=== PATIENT | female | born 1955 | race Caucasian/White ===

== ENCOUNTER 2019-03-23 14:39 | Inpatient (IN) | payer BC, OTHER ==
[~2019-03-23] VITALS: Ht 157.5 cm; Wt 87.4 kg
[2019-03-23 15:00] VITALS: BP 142/103
[2019-03-23] MEDS ORDERED: METFORMIN HCL500 MG PO (15:42)
[2019-03-23] MEDS ORDERED: COZAAR 25 MG TA25 M1 PO (15:44)
[2019-03-23] MEDS ORDERED: GLUCOTROL5 MG PO (15:45)
[2019-03-23] MEDS ORDERED: ASPIR 8181 MG PO (15:46)
[2019-03-23] MEDS ORDERED: LIPITOR10 MG PO (15:47)
[2019-03-23 17:36] LABS: HEMATOCRIT 43.6 % (37.0-47.0); HEMOGLOBIN 14.2 gm/dL (12.0-15.0); MCH 26.4 pg (26.0-34.0); MCHC 32.5 g/dL (28.0-37.0); MCV 81.3 fL (80.0-100.0); RBC 5.37 mil/uL (4.20-5.00); RDW 14.6 % (10.5-14.5); WBC 16.8 thou/uL (4.0-11.0)
[2019-03-23 17:59] LABS: ALBUMIN 3.1 g/dL (3.4-5.0); CALCIUM 8.8 mg/dL (8.5-10.1); CREATININE 0.6 mg/dL (0.6-1.0); POTASSIUM 3.2 mmol/L (3.5-5.1); TOTAL BILIRUBIN 1.2 mg/dL (<0.1-1.0); TOTAL PROTEIN 6.1 g/dL (6.4-8.2)
--- NOTE | 2019-03-23 18:38 | NUR ---
PATIENT ARRIVED FROM DR URRUTIA OFFICE, ALERT AND ORIENTED X4. AFIB WITH RVR, CARDIZEM PUSH GIVEN AND GTT AT 10MG/HR. ADMISION COMPLETED AND CARE PLAN INTIAITED.
[2019-03-23 20:00] VITALS: BP 100/58; BP 107/59
[2019-03-23 21:15] VITALS: BP 89/58
[2019-03-23 22:30] VITALS: BP 95/63
[2019-03-24 00:15] VITALS: BP 107/79
--- NOTE | 2019-03-24 03:22 | NUR ---
ASSUMED PT CARE AT 1900. PT A/OX4, VITAL SIGNS STABLE, PT IN AFIB RVR, HR RANGING BETWEEN 160'S- 120'S. PT ON CARDIZEM DRIP GOING AT 20MG/HR. NO COMPLAINTS OF PAIN/CHEST PAIN. PHYSICIAN VISITED WITH PT, HR STILL ELEVATED, ADDITION MEDS ORDERED, LOPRESSOR GIVEN. AT ABOUT 2230, PT BLOOD PRESSURE WAS IN 80'S. PHYSICIAN CONTACTED, ORDERS RECIEVED. FREQUENT/HRLY BLOOD PRESSURE CHECKS UNTIL STABLE. MEDS GIVEN RECOMMENDED/SCHEDULED. HR RANGING BETWEEN 115-80. CLOSELY MONITORING HR. GOAL TO KEEP HR<100. PT OTHERWISE RESTED WELL THROUGH THE NIGHT. CALLS APPROPRIATELY BEFORE GETTING OUT OF BED. PROGESSING TOWARD PLAN OF CARE. WILL CONTINUE TO MONITOR.
[2019-03-24 04:00] VITALS: BP 105/72
[2019-03-24 07:34] VITALS: BP 109/68
--- NOTE | 2019-03-24 09:30 | 2DMMODE ---
[facility] [address] [place] [address] 2 D/M-MODE ECHOCARDIOGRAM Name: AICHA SOLER Room #: 219-P [facility] IN M.R.#: [id number] ������������� Admission: 03/23/19 ������������� Attend Phys: Lebron Diego, Discharge: ��� ������������� ��� Date of : 57 Date of Service: 03/24/19 0930 �� Report #: [id number] �������� ��������������������������������������������[id number] THIS REPORT FOR: //name// APPROVED REPORT Study performed: 03/24/2019 08:13:28 EXAM: Comprehensive 2D, Doppler, and color-flow Echocardiogram Patient Location: Bedside Room #: 219 Status: routine BSA: 1.88 HR: 103 bpm BP: 109/68 mmHg Rhythm: Atrial Fibrillation Other Information Study Quality: Good Indications Atrial Fibrillation 2D Dimensions RVDd: 39.39 mm IVSd: 10.96 (7-11mm) LVOT Diam: 18.83 (18-24mm) LVDd: 50.79 mm PWd: 9.91 (7-11mm) Ascending Ao: 33.64 (22-36mm) LVDs: 42.14 (25-40mm) Aortic Root: 30.70 mm Volumes Left Atrial Volume (Systole) Single Plane 4CH: 72.86 mL Single Plane 2CH: 73.42 mL LA ESV Index: 42.00 mL/m2 Aortic Valve AoV Peak Darian.: 1.55 m/s AO Peak Gr.: 9.88 mmHg LVOT Max P.50 mmHg LVOT Max V: 0.78 m/s LUCIANO Vmax: 1.40 cm2 Mitral Valve MV Decel. Time: 126.60 ms MV E Max Darian.: 1.10 m/s [facility] [address] [place] [address] 2 D/M-MODE ECHOCARDIOGRAM Name: AICHA SOLER Room #: 219-P [facility] IN ..#: [id number] ������������� Admission: 03/23/19 ������������� Attend Phys: Lebron Diego, Discharge: ��� ������������� ��� Date of : 57 Date of Service: 03/24/19 0930 �� Report #: [id number] �������� ��������������������������������������������[id number] Pulmonary Valve PV Peak Darian.: 0.57 m/s PV Peak Gr.: 1.39 mmHg Tricuspid Valve TR Peak Darian.: 2.14 m/s RAP Estimate: 10.00 mmHg TR Peak Gr.: 18.61 mmHg PA Pressure: 29.00 mmHg Left Ventricle The left ventricle is normal size. There is normal left ventricular wall thickness. Left ventricular systolic function is mild to moderately decreased. LVEF is35- 40%. This study is not technically sufficient to allow evaluation of the LV diastolic function due to atrial fibrillation. Right Ventricle Right ventricle is moderately dilated. Right ventricle is mildly hypokinetic. Atria Left atrium is moderately dilated. Right atrium is borderline dilated. Aortic Valve The aortic valve is normal in structure. No aortic regurgitation is present. There is no aortic valvular stenosis. Mitral Valve The mitral valve is normal in structure. Moderate mitral regurgitation. Tricuspid Valve The tricuspid valve is normal in structure. Moderate tricuspid regurgitation. Estimated PAP is 30mmHg. Pulmonic Valve The pulmonary valve is normal in structure. Mild pulmonic regurgitation. Great Vessels The aortic root is normal in size. The ascending aorta is normal in size. IVC is dilated and collapses <50% with inspiration. Pericardium Small pericardial effusion noted. [facility] [address] [place] [address] 2 D/M-MODE ECHOCARDIOGRAM Name: AICHA SOLER Room #: 219-P [facility] IN M.R.#: [id number] ������������� Admission: 03/23/19 ������������� Attend Phys: Lebron Diego, Discharge: ��� ������������� ��� Date of : 57 Date of Service: 03/24/19 0930 �� Report #: [id number] �������� ��������������������������������������������[id number] <Conclusion> The left ventricle is normal size. Left ventricular systolic function is mild to moderately decreased. LVEF is35- 40%. This study is not technically sufficient to allow evaluation of the LV diastolic function due to atrial fibrillation. Right ventricle is moderately dilated. Right ventricle is mildly hypokinetic. Left atrium is moderately dilated. Right atrium is borderline dilated. Moderate mitral regurgitation. The aortic valve is normal in structure. Moderate tricuspid regurgitation. Estimated PAP is 30mmHg. The aortic root is normal in size. Small pericardial effusion noted. ��������������������������������������������� <ELECTRONICALLY SIGNED> ���������������������������������������� By: Lebron Diego MD, FACC ��������������������������������������������� 03/24/19929 9 9 Lebron Diego MD, FACC /INF
[2019-03-24 10:46] VITALS: BP 110/66
[2019-03-24 15:28] VITALS: BP 114/56
--- NOTE | 2019-03-24 17:58 | NUR ---
ASSUMED CARE AT SHIFT CHANGE, ALERT AND ORIENTED. HR REMAINS HIGH AT 100-165/MIN, AND CARDIAC MEDS GIEVN ORDERED AND PATIENT REMAINS ON CARDIZEM GTT AT 20MG/HR. AFEBRILE AND BP WNL. DENIES ANY CP OR DISCOMFORT AND WILL CONTINUE WITH POC.
[2019-03-24 19:31] VITALS: BP 140/58
--- NOTE | 2019-03-25 03:06 | NUR ---
ASSUMED PT CARE AT 1900. PT A/OX4, VITAL SIGNS STABLE, ASSESSMENT CHARTED. NO COMPLAINTS OF PAIN. HR MAINTAINED BETWEEN 110-80'S. PT HR GOES UP TO THE 130'S WITH ACTIVITY. PT RESTED WELL THROUGH THE NIGHT. CARDIZEM GOING AT 20MG/HR. PROGRESSING TOWARD PLAN OF CARE. WILL CONTINUE TO MONITOR.
[2019-03-25 04:54] VITALS: BP 119/84
[2019-03-25 08:21] VITALS: BP 124/64
--- NOTE | 2019-03-25 09:30 | EKG ---
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 : 1955 Requested By: Gabi Garcia Order Number: [id number] MD: Nicholas Hawk Measurements Intervals [place] Rate: 103 P: SC: QRS: 64 QRSD: 105 T: 157 QT: 399 QTc: 523 Interpretive Statements Atrial fibrillation PVC Nonspecific ST segment–T-wave abnormalities No previous ECG available for comparison Electronically Signed On 03-25-2019 9:30:13 CDT by Nicholas Hawk [email or web address] ��������������������������������������������� <ELECTRONICALLY SIGNED> ���������������������������������������� By: Nicholas Hawk MD ��������������������������������������������� 03/25/19 0930 0948 0948 Nicholas Hawk MD /SHARLA
[2019-03-25 10:04] LABS: CALCIUM 8.9 mg/dL (8.5-10.1); CREATININE 0.7 mg/dL (0.6-1.0); POTASSIUM 3.7 mmol/L (3.5-5.1)
[2019-03-25 11:55] VITALS: BP 137/51
[2019-03-25 15:24] VITALS: BP 116/72
--- NOTE | 2019-03-25 19:23 | NUR ---
ASSUMED CARE AT SHIFT CHANGE, ALERT AND ORIENTED X4 AND DENIES ANY DISCOMFORT. ASSESSMENT DOCUMENTED. HR 120-75/MIN REMAINS ON CADIZEM GTT AT 5MG/HR, AND MEDICATED PER ORDERS. PATIENT HAS A SMALL WOUND CAUSED BY THE ECG ELECTRODES, PICTURE TAKEN AND FILED IN THE CHART. PROGRESSING TOWARDS THE GOALS AND WILL CONTIUE WITH POC
[2019-03-25 19:26] VITALS: BP 118/71
--- NOTE | 2019-03-26 04:05 | NUR ---
ASSUMED PT CARE AT 1900. PT A/OX4, NO COMPLAINTS OF PAIN. VITAL SIGNS STABLE, ASSESSMENT CHARTED. CARDIZEM DRIP GOING AT 5MG/HR, RATE ADEQAUTELY CONTROLLED. HR IN THE 80'S AND 90'S. PT RESTED WELL THROUGH THE NIGHT. REFUSED HER 2100 GLIPIZIDE. STATED SHE TAKES IT ONLY ONE TIME A DAY AT HOME. WILL CONTINUE TO CLOSELY MONITOR. WILL CONTINUE TO MONITOR.
[2019-03-26 04:22] VITALS: BP 136/60
[2019-03-26] MEDS ORDERED: DEMADEX20 MG PO (07:59)
[2019-03-26] MEDS ORDERED: COZAAR 25 MG TA25 M1 PO (07:59)
[2019-03-26] MEDS ORDERED: METOPROLOL SUCC50 MG PO (07:59)
[2019-03-26] MEDS ORDERED: XARELTO20 MG PO (07:59)
[2019-03-26] MEDS ORDERED: DIGOXIN250 MCG PO (07:59)
[2019-03-26] MEDS ORDERED: CARDIZEM CD240 MG PO (07:59)
--- NOTE | 2019-03-26 08:09 | NUR ---
PT CARE ASSUMED, ASSESSMENT CHARTED, VSS, ALERT AND ORIENTED, C/O OF L CHEST PAIN, GAVE HYDROCODONE, STATES NO FURTHER NEEDS, WILL CONTINUE TO MONITOR
[2019-03-26 08:15] VITALS: BP 125/69
[2019-03-26 09:59] VITALS: BP 125/69
--- NOTE | 2019-03-26 10:52 | NUR ---
PATIENT CARE ASSUMED, ASSESSMENT CHARTED, VSS, ALERT AND ORIENTED. PATIENT TO BE DISCHARGED, CARDIZEM DRIP DC'D AND SALINE LOCK DC'D. MORNING MEDS GIVEN, DISCHARGE INSTRUCTIONS GIVEN, PATIENT STATED UNDERSTANDING. TAKEN OUT OF FACILITY BY WHEELCHAIR ACCOMPANIED BY SPOUSE
--- NOTE | 2019-03-26 16:14 | EKG ---
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 : 1955 Requested By: Gabi Garcia Order Number: [id number] MD: Nicholas Hawk Measurements Intervals [place] Rate: 104 P: SC: QRS: 6 QRSD: 97 T: 166 QT: 365 QTc: 481 Interpretive Statements Atrial fibrillation Repol abnrm suggests ischemia, lateral leads Compared to ECG 03/24/2019 09:48:35 Possible ischemia now present Ventricular premature complex(es) no longer present Electronically Signed On 03-26-2019 16:13:58 CDT by Nicholas Hawk [email or web address] ��������������������������������������������� <ELECTRONICALLY SIGNED> ���������������������������������������� By: Nicholas Hawk MD ��������������������������������������������� 03/26/19 1613 0755 0755 Nicholas Hawk MD /EPI
== END 2019-03-26 10:55 | disposition home or self-care (01) | DRG 308 ==
LOC: 2N 14:39 → ENTRNSPT 03-26 10:38 → EDTRNSPTSTS 03-26 10:40 → 2N 03-26 10:55
PROVIDERS: Nurse Practitioner Adult Health; ADMIT Internal Medicine Cardiovascular Disease
DX: I48.91 Unspecified atrial fibrillation (principal); I50.23 Acute on chronic systolic (congestive) heart failure; I11.0 Hypertensive heart disease with heart failure; E78.5 Hyperlipidemia, unspecified; E11.9 Type 2 diabetes mellitus without complications; I42.9 Cardiomyopathy, unspecified; I08.1 Rheumatic disorders of both mitral and tricuspid valves; Z79.82 Long term (current) use of aspirin; Z79.84 Long term (current) use of oral hypoglycemic drugs; Z79.899 Other long term (current) drug therapy; Z88.0 Allergy status to penicillin; Z88.5 Allergy status to narcotic agent
CPT/HCPCS: 10081

== ENCOUNTER → 2019-04-29 | Outpatient (CLI) | payer BC, OTHER ==
[~2019-04-29] VITALS: Ht 157.5 cm; Wt 78.0 kg
[~2019-04-29] MED LIST: AMIODARONE HCL400 MG PO; ASPIR 8181 MG PO; CARDIZEM CD240 MG PO; COZAAR 25 MG TA25 M1 PO; DEMADEX20 MG PO; DIGOXIN250 MCG PO; GLUCOTROL5 MG PO; LIPITOR10 MG PO; METFORMIN HCL500 MG PO; METOPROLOL SUCC50 MG PO; TOPROL XL100 MG PO; TORSEMIDE20 MG PO; TRI-BUFFERED A325 M1 PO; XARELTO20 MG PO
[2019-04-29 07:15] VITALS: BP 127/74
--- NOTE | 2019-04-29 09:57 | TEE ---
[facility] [employer] [employer] [place] [address] TRANSESOPHAGEAL ECHOCARDIOGRAM Name: AICHA SOLER Room #: REG CL [facility]#: [id number] ������������� Admission: 04/29/19 ������������� Attend Phys: Lebron Diego, Discharge: ��� ������������� ��� Date of : 57 Date of Service: 04/29/19 0957 �� Report #: [id number] �������� ��������������������������������������������[id number] THIS REPORT FOR: //name// APPROVED REPORT Study performed: 04/29/2019 07:53:08 EXAM: Transesophageal Echocardiogram with Doppler; Cardioversion Patient 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 Type of Sedation : Conscious Sedation Sedation was administered by Giovana Greenberg RN. Sedation was achieved intravenously with: Versed (2.5 mg) Fentanyl (125 mcg) Transesophageal probe was inserted and advanced into esophagus without difficulty by Christopher Denson MD. The THAI was performed without complications. Synchronized Cardioversion attempted: Unsuccessful Synchronized Cardioversion acheived with 50, 150, 200, 200 Joules after 4 attempt(s). Rhythm following Synchronized Cardioversion: Atrial fibrillation Throughout the procedure, the blood pressure, pulse oximetry, cardiac rhythm, and rate were monitored. The patient tolerated the procedure without adverse effects. Recovery from conscious sedation was uneventful and vital signs were stable. Attempted 4 times Synchronized Cardioversion, 50 Joules, 150 Joules, 200 Joules, 200 Joules. Patient remained in Atrial Fibrillation. [facility] [address] [address] TRANSESOPHAGEAL ECHOCARDIOGRAM Name: AICHA SOLER [id number] ������������� Admission: 04/29/19 ������������� Attend Phys: Lebron Diego, Discharge: ��� ������������� ��� Date of : 57 Date of Service: 04/29/19 0957 �� Report #: [id number] �������� ��������������������������������������������[id number] Left Ventricle The left ventricle is normal size. There is normal left ventricular wall thickness. The left ventricular systolic function is normal. The left ventricular ejection fraction is within the normal range. LVEF is 50%. Right Ventricle The right ventricle is normal size. The right ventricular systolic function is normal. Atria Left atrium is dilated. No thrombus is visualized in the left atrium or appendage. Prominent pectinate muscles Atrial septal defect is seen with color flow doppler measuring (diameter .6 cm) Right atrium is dilated. Aortic Valve The aortic valve is normal in structure, trileaflet. No aortic regurgitation is present. There is no aortic valvular stenosis. Mitral Valve The mitral valve is normal in structure. Mild mitral regurgitation. No evidence of mitral valve stenosis. Tricuspid Valve The tricuspid valve is normal in structure. Mild tricuspid regurgitation. Pulmonic Valve The pulmonary valve is normal in structure. There is no pulmonic valvular regurgitation. Great Vessels The aortic root is normal in size. Moderate aortic atherosclerosis involving the distal aortic arch IVC is normal in size and collapses >50% with inspiration. Pericardium There is no pericardial effusion. Critical Notification Critical Value: Yes Physician Notified Date: 04/29/2019 [facility] [address] [place] [address] TRANSESOPHAGEAL ECHOCARDIOGRAM Name: AICHA SOLER Room #: [facility]#: [id number] ������������� Admission: 04/29/19 ������������� Attend Phys: Lebron Diego, Discharge: ��� ������������� ��� Date of : 57 Date of Service: 04/29/19 0957 �� Report #: [id number] �������� ��������������������������������������������[id number] <Conclusion> The left ventricular systolic function is normal. LVEF is 50%. Both atria are dilated. No thrombus is visualized in the left atrium or appendage. Prominent pectinate muscles Atrial septal defect is seen with color flow doppler measuring (diameter .6 cm) The aortic valve is normal in structure, trileaflet. No aortic regurgitation or stenosis The mitral valve is normal in structure. Mild mitral regurgitation. Moderate aortic atherosclerosis involving the distal aortic arch There is no pericardial effusion. Failure to intiate sinus rhythm following 4 biphasic synchronous shocks ��������������������������������������������� <ELECTRONICALLY SIGNED> ���������������������������������������� By: Christopher Denson MD, [facility] ��������������������������������������������� 04/29/1956 0957 09 Christopher Denson MD, FACC /INF
--- NOTE | 2019-04-29 10:19 | NUR ---
DR URRUTIA NOTIFIED THAT PT'S HEART RATE STAYING AROUND 137. PT ASYMPTOMATIC. SO GAVE METOPROLOL 5MG IV AND CARIDZEM 240 MG PO GIVEN AT 1015. PT FULLY AWAKE AND ALERT AND DRINKING FLUIDS WITHOUT DIFFICULTY. NO COUGHING. ALSO EATING CRACKERS
--- NOTE | 2019-04-29 12:01 | NUR ---
PT CONVERTED TO NSR AT 1140. RHYTHM STRIP RAN AND 12 LEAD EKG DONE. YANNI RN NOTIFIED. PT WAITING TO SEE DR GORDON
--- NOTE | 2019-04-30 07:30 | EKG ---
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 : 1955 Requested By: Lebron Diego Order Number: [id number] MD: Christopher Denson Measurements Intervals [place] Rate: 61 P: 68 ID: [id number] QRS: 15 QRSD: 101 T: 141 QT: 431 QTc: 434 Interpretive Statements Sinus rhythm Nonspecific ST and T wave abnormality Compared to ECG 03/26/2019 07:55:31 Atrial fibrillation no longer present Electronically Signed On 04-30-2019 7:30:17 CDT by Christopher Denson [email or web address] ��������������������������������������������� <ELECTRONICALLY SIGNED> ���������������������������������������� By: Christopher Denson MD, [facility] ��������������������������������������������� 04/30/19 0730 1152 1152 Christopher Denson MD, [facility] /EPI
== END | disposition home or self-care (01) ==
LOC: CATH 06:47
DX: I48.91 Unspecified atrial fibrillation (principal); I70.0 Atherosclerosis of aorta; I08.1 Rheumatic disorders of both mitral and tricuspid valves; I10 Essential (primary) hypertension; E07.9 Disorder of thyroid, unspecified; E11.9 Type 2 diabetes mellitus without complications; F41.9 Anxiety disorder, unspecified; F17.210 Nicotine dependence, cigarettes, uncomplicated; Z79.01 Long term (current) use of anticoagulants; Z88.0 Allergy status to penicillin; Z88.8 Allergy status to other drugs, medicaments and biological substances; Z79.899 Other long term (current) drug therapy; Z79.84 Long term (current) use of oral hypoglycemic drugs; Z79.82 Long term (current) use of aspirin; Z90.49 Acquired absence of other specified parts of digestive tract; Z98.890 Other specified postprocedural states

== ENCOUNTER 2019-05-03 09:01 | Inpatient (IN) | payer BC, OTHER ==
[~2019-05-03] VITALS: Ht 157.5 cm; Wt 76.9 kg
--- NOTE | ~2019-05-03 | P ---
[facility] [place] [address] PROCEDURE REPORT Name: AICHA SOLER Room #: 214-P ADM IN M.R.#: [id number] Admission: 05/03/19 ������������������ Attend Phys: Jamil Hyde MD Discharge: ������������������ Date of : 57 Report #: [id number] THIS REPORT FOR: //name// CC: Keon Hyde PACEMAKER IMPLANTATION: PREOPERATIVE DIAGNOSES: 1. Paroxysmal atrial fibrillation. 2. Sick sinus syndrome. 3. Tachycardia-bradycardia syndrome. 4. Syncope. 5. Cardiac arrest. HISTORY: The patient is a 63-year-old female originally diagnosed with paroxysmal atrial fibrillation who has had evidence of AFib with rapid ventricular response and conversion pauses that are 5-10 seconds in duration with associated presyncope and syncope. She is here for dual chamber pacemaker implantation. ANESTHESIA: The patient underwent MAC anesthesia with no anesthesia related complications. DESCRIPTION OF PROCEDURE: The patient underwent informed consent, we discussed the details of the procedure including the risks, which include but not limited to bleeding, infection, vascular damage, cardiac perforation and pneumothorax. She understood these risks and is willing to proceed. The patient was brought to the EP laboratory in a fasting and sedated state and prepped and draped in a sterile fashion. She received IV antibiotics prior to initiation of the procedure and underwent a venogram showing patency of left axillary vein. I then injected lidocaine below the level of left clavicle. Incision was made, pocket was created over the prepectoral fascia and access was obtained twice to left axillary vein using the extrathoracic approach. Sheaths were positioned using the modified Seldinger technique. Leads were positioned in the right ventricular apex and right atrial appendage both with adequate pacing and sensing thresholds. While we were performing the device implantation, the patient did go into atrial fibrillation with rapid ventricular response; all sites of conversion pauses. In order to check the atrial threshold, we had to perform cardioversion. We did give her a bolus of amiodarone in the EP lab as well to maintain sinus rhythm as the initial cardioversions were not successful. Next, leads were sutured to the prepectoral fascia. The device was connected to the leads. The pocket was irrigated with vancomycin and then closed in 2 layers using 2-0 for the deep layer, 3-0 for the mid layer and surgical glue was placed to the outer skin layer. The patient awoke neurologically and hemodynamically intact. No complications and no [address] [address] PROCEDURE REPORT Name: AICHA SOLER Room #: 214-P [facility] IN ..#: [id number] Admission: 05/03/19 ������������������ Attend Phys: Jamil Hyde MD Discharge: ������������������ Date of : 57 Report #: [id number] significant bleeding. The implanted pacemaker was a [employer], model #PP9332, serial #[id number]. The atrial lead was a [employer], model #2088TC, 52 cm, serial #[id number]. The RV lead was a [employer] model #2088TC, 58 cm, serial #[id number]. The atrial lead demonstrated a threshold of less than 1 volt at 0.5 milliseconds, P-wave of 3.6 millivolts and pacing impedance 600 ohms. The RV lead demonstrated a R-wave of greater than 12 millivolts, pacing threshold 0.75 volts at 0.4 milliseconds and a pacing impedance of 540 ohms. The device was programmed to the DDDR 60-130 mode. CONCLUSIONS: 1. Successful dual-chamber pacemaker implantation. 2. Satisfactory atrial and ventricular pacing and sensing thresholds. ��������������������������������������������� ���������������������������������������� By: ��������������������������������������������� 0751 0910 Demetrius Arzola MD /nt
[~2019-05-03 09:01] MED LIST changes: -TORSEMIDE20 MG PO; -TRI-BUFFERED A325 M1 PO
[2019-05-03 09:02] VITALS: BP 139/99
[2019-05-03 09:43] LABS: ABSOLUTE NEUTROPHILS 5.7 thou/uL (1.4-8.2); BASOPHILS 0.5 % (0.0-2.0); EOSINOPHILS 1.6 % (0.0-3.0); HEMATOCRIT 46.7 % (37.0-47.0); HEMOGLOBIN 15.4 gm/dL (12.0-15.0); LYMPHOCYTES 30.9 % (24.0-44.0); MCH 26.3 pg (26.0-34.0); MCV 79.7 fL (80.0-100.0); MONOCYTES 10.4 % (1.0-8.0); PLATELET COUNT 194 thou/uL (150-400); POLYS 56.6 % (36.0-66.0); RBC 5.86 mil/uL (4.20-5.00); RDW 15.3 % (10.5-14.5); WBC 10.1 thou/uL (4.0-11.0)
[2019-05-03 09:48] LABS: ANION GAP 13 mmol/L (7-16); BUN 13 mg/dL (7-18); CALCIUM 8.9 mg/dL (8.5-10.1); CHLORIDE 103 mmol/L (98-107); CO2 26 mmol/L (21-32); CREATININE 0.7 mg/dL (0.6-1.0); GLUCOSE 135 mg/dL (74-106); POTASSIUM 3.6 mmol/L (3.5-5.1); SODIUM 142 mmol/L (136-145)
[2019-05-03 09:57] LABS: MAGNESIUM 1.1 mg/dL (1.8-2.4); TROPONIN-I <0.06 ng/mL (<0.06)
[2019-05-03 10:38] VITALS: BP 157/74
[2019-05-03 11:05] VITALS: BP 115/82
[2019-05-03 11:33] LABS: URINE BILIRUBIN NEGATIVE (Negative); URINE BLOOD NEGATIVE (Negative); URINE CLARITY CLEAR; URINE COLOR YELLOW; URINE GLUCOSE-RANDOM* NEGATIVE (Negative); URINE KETONES NEGATIVE (Negative); URINE LEUKOCYTES-REFLEX NEGATIVE (Negative); URINE NITRITE-REFLEX NEGATIVE (Negative); URINE PROTEIN (DIPSTICK) NEGATIVE (Negative); URINE SPECIFIC GRAVITY <= 1.005 (1.005-1.035); URINE UROBILINOGEN 0.2 E.U./dl (0.2-1.0)
[2019-05-03 12:37] VITALS: BP 100/55
[2019-05-03 15:37] VITALS: BP 100/80
--- NOTE | 2019-05-03 18:10 | NUR ---
ASSUMED CARE AT 1100, ADMISSION DONE, MEDS RECONCILED. ON TELE, SINUS BRADYCARDIA. NO ASYSTOLE WAS SEEN ON TELE. DENIES ANY PAIN, NAUSEA, VOMITING. UP WITH STANDBY ASSIST, USING THE BATHROOM. HAS NOT REPORTED ANY DIZZINESS. SCHEDULED FOR PACEMAKER PLACEMENT TOMORROW, NPO FROM MIDNIGHT, COSNENT SIGNED. WILL CONTINUE TO ASSESS AND ASSIST WITH ADLs NEEDED.
[2019-05-03 19:58] VITALS: BP 109/50
[2019-05-04 04:24] VITALS: BP 124/50
--- NOTE | 2019-05-04 06:38 | NUR ---
PATIENTS CARES WERE ASSUMED AT SHIFT CHANGE. PATIENT WAS ASSESSED AND MEDS WERE PASSED, PATIENT WAS SHOWERED X2 TO CLEAN AND MAKE READY FOR HER PACEMAKER PLACEMENT. LINENS WERE REFRESHED TO. HOURLY ROUNDING WAS DONE. THE BED IS IN A LOW AND LOCKED POSITION.
[2019-05-04 07:40] VITALS: BP 119/55
--- NOTE | 2019-05-04 08:15 | EKG ---
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: TYRELL : 1955 Requested By: Delaney Cross Order Number: [id number] MD: Demetrius Arzola Measurements Intervals [place] Rate: 125 P: 256 [place]: 89 QRS: 1 QRSD: 83 T: 222 QT: 284 QTc: 410 Interpretive Statements Atrial flutter Compared to ECG 04/29/2019 11:52:07 Early repolarization now present Electronically Signed On 05-04-2019 8:15:45 CDT by Demetrius Arzola [email or web address] ��������������������������������������������� <ELECTRONICALLY SIGNED> ���������������������������������������� By: Demetrius Arzola MD ��������������������������������������������� 05/04/19814 5 5 Demetrius Arzola MD /SHARLA
--- NOTE | 2019-05-04 11:05 | NUR ---
Assess for unintentional wt loss. Pt admit wiht dizziness and fall, and currently npo for pacemaker placement today. Pt not feeling up to speaking at time of visit but did state her appetite is fine, and she had wt loss nearly 20 lb because she required diuretic. Voiced no needs and again did not want to speak further to this financial writer. Low nutrition risk
--- NOTE | 2019-05-04 12:38 | NUR ---
PT ADMITTED RELATED TO DIZZINESS AND FALL. CM REVIEWED CHART AND SPOKE WITH CARE TEAM. CM MET WITH PT AT BEDSIDE THIS DAY. PT IS A&O X4. CM ROLE INTRODUCED. PT INDICATED SHE LIVES IN A HOUSE WITH HER SPOUSE WITH 3 STEPS TO ENTER AND NONE INSIDE. 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 PT INDICATED NO DME BUT THAT SHE HAD DONE OP PT IN THE PAST. PT INDICATED SHE PLANS TO RETURN HOME ONCE MEDICALLY STABLE. PT IS TO HAVE A PACEMAKER PUT IN TODAY. CM TO FOLLOW INDICATED WITH DC PLANNING. CM TO FOLLOW REGARDING DC NEEDS.
[2019-05-04 14:39] VITALS: BP 116/47
[2019-05-04 18:49] VITALS: BP 118/53
--- NOTE | 2019-05-04 19:53 | NUR ---
ASSESSMENT CHARTED, VSS, ALERT AND ORIENTED, PATIENT NPO, CARDIAC PACEMAKER PLACED IN UPPER RIGHT CHEST. WELL APPROXIMATED. NO COMPLAINTS OF PAIN
[2019-05-04 20:32] VITALS: BP 127/63
--- NOTE | 2019-05-05 04:28 | NUR ---
PATIENTS CARE WAS ASSUMED AT SHIFT CHANGE.PATIENT WAS ASSESSED AND MEDS WERE PASSED. ORDERS WERE BEHIND WHEN THE SHIFT STARTED HOWEVER ALL ORDERS WERE CARRIED OUT. AMIODERON GTT STARTED LATE, HOWEVER ITIS TO RUN SIX HOURS THEN STOP. PO MEDS ALSO LATE BUT BACK ON TRACK. HOURLY ROUNDS WERE DONE. THE BED IS IN A LOW AND LOCKED POSITION.
[2019-05-05 05:05] VITALS: BP 139/63
[2019-05-05 07:42] VITALS: BP 143/65
[2019-05-05] MEDS ORDERED: XARELTO20 MG PO (08:47)
[2019-05-05 09:42] VITALS: BP 143/65
[2019-05-05] MEDS ORDERED: TORSEMIDE20 MG PO (10:36)
[2019-05-05] MEDS ORDERED: TRI-BUFFERED A325 M1 PO (10:45)
[2019-05-05] MEDS ORDERED: AMIODARONE HCL400 MG PO (10:56)
[2019-05-05 10:58] VITALS: BP 143/65
--- NOTE | 2019-05-05 11:04 | NUR ---
ASSUMED CARE AT SHIFT CHANGE, ALERT AND ORIENTED X4. DENIES CP OR DISCOMFORT AT THIS TIME. ASSESMENT CHARTED. DISCHARGE AND MEDICATION INSTRUCTIONS GIVEN. PATIENT DISCHATGED HOME.
== END 2019-05-05 11:04 | disposition home or self-care (01) | DRG 243 ==
LOC: ER 09:01 → 2N 10:27 → EROBS 10:27 → 2N 11:36
PROVIDERS: Emergency Medicine; ADMIT Internal Medicine
PROC: 0JH606Z Insertion of Pacemaker, Dual Chamber into Chest Subcutaneous Tissue and Fascia, Open Approach (ICD-10-PCS; principal; 2019-05-04)
PROC: 02H63JZ Insertion of Pacemaker Lead into Right Atrium, Percutaneous Approach (ICD-10-PCS; 2019-05-04)
PROC: 02HK3JZ Insertion of Pacemaker Lead into Right Ventricle, Percutaneous Approach (ICD-10-PCS; 2019-05-04)
DX: I49.5 Sick sinus syndrome (principal); I48.92 Unspecified atrial flutter; I50.32 Chronic diastolic (congestive) heart failure; Q21.1 Atrial septal defect; E11.9 Type 2 diabetes mellitus without complications; E03.9 Hypothyroidism, unspecified; F17.210 Nicotine dependence, cigarettes, uncomplicated; I48.0 Paroxysmal atrial fibrillation; E78.5 Hyperlipidemia, unspecified; I11.0 Hypertensive heart disease with heart failure; E66.9 Obesity, unspecified; I34.0 Nonrheumatic mitral (valve) insufficiency; J44.9 Chronic obstructive pulmonary disease, unspecified; F41.9 Anxiety disorder, unspecified; I42.9 Cardiomyopathy, unspecified; E05.90 Thyrotoxicosis, unspecified without thyrotoxic crisis or storm; Z88.0 Allergy status to penicillin; Z88.8 Allergy status to other drugs, medicaments and biological substances; Z79.899 Other long term (current) drug therapy; Z79.82 Long term (current) use of aspirin; Z79.84 Long term (current) use of oral hypoglycemic drugs; Z90.49 Acquired absence of other specified parts of digestive tract; Z82.49 Family history of ischemic heart disease and other diseases of the circulatory system; Z83.3 Family history of diabetes mellitus; Z80.9 Family history of malignant neoplasm, unspecified; Z79.01 Long term (current) use of anticoagulants; Z68.31 Body mass index [BMI] 31.0-31.9, adult
CPT/HCPCS: 10081; 10194; 62110; 62900; 70005

== ENCOUNTER → 2019-06-29 | Outpatient (CLI) | payer BC, OTHER ==
[~2019-06-29] MED LIST changes: +TORSEMIDE20 MG PO; +TRI-BUFFERED A325 M1 PO
[2019-06-29 07:50] LABS: HEMATOCRIT 41.6 % (37.0-47.0); HEMOGLOBIN 14.1 gm/dL (12.0-15.0); MCH 28.4 pg (26.0-34.0); MCHC 33.8 g/dL (28.0-37.0); MCV 84.1 fL (80.0-100.0); RBC 4.94 mil/uL (4.20-5.00); RDW 16.9 % (10.5-14.5); WBC 7.9 thou/uL (4.0-11.0)
[2019-06-29 08:18] LABS: ALBUMIN 3.6 g/dL (3.4-5.0); CALCIUM 8.7 mg/dL (8.5-10.1); CREATININE 0.7 mg/dL (0.6-1.0); POTASSIUM 4.1 mmol/L (3.5-5.1); TOTAL BILIRUBIN 0.3 mg/dL (<0.1-1.0); TOTAL PROTEIN 6.8 g/dL (6.4-8.2)
== END ==
LOC: CAT 07:06
PROVIDERS: Internal Medicine Cardiovascular Disease
DX: I48.0 Paroxysmal atrial fibrillation (principal); I25.10 Atherosclerotic heart disease of native coronary artery without angina pectoris; M47.814 Spondylosis without myelopathy or radiculopathy, thoracic region; Z95.0 Presence of cardiac pacemaker; Z88.0 Allergy status to penicillin; Z88.5 Allergy status to narcotic agent

== ENCOUNTER 2019-07-03 09:21 | Outpatient (CLI) | payer BC, OTHER ==
[~2019-07-03] VITALS: Ht 157.5 cm; Wt 82.6 kg
--- NOTE | ~2019-07-03 | P ---
[facility] [address] PROCEDURE REPORT Name: AICHA SOLER Room #: 213-P [facility] LandaSamirOsmanySamir#: [id number] Admission: 07/03/19 ������������������ Attend Phys: Demetrius Arzola MD Discharge: ������������������ Date of : 57 Report #: [id number] THIS REPORT FOR: //name// CC: Keon Arzola DATE OF SERVICE: 07/03/2019 PREOPERATIVE DIAGNOSES: 1. Atrial fibrillation. 2. Typical atrial flutter. PROCEDURES PERFORMED: 1. AFib ablation, CPT code 26821. 2. 3D mapping, CPT code 30704. 3. Intracardiac echo, CPT code 63832. 4. Second pathway ablation, CPT code 30479. 5. Preprocedure pacemaker reprogramming, CPT code 39405. 6. Postprocedure pacemaker reprogramming, CPT code 74489. HISTORY: The patient is a 63-year-old recently diagnosed with paroxysmal atrial fibrillation as well as sick sinus syndrome with documented syncopal episodes, status post recent dual chamber pacemaker implantation. Despite antiarrhythmic drug therapy, she has continued to have episodes of atrial fibrillation. She is here for atrial fib and atrial flutter ablation. ANESTHESIA: The patient underwent general anesthesia with no anesthesia related complications. DESCRIPTION OF PROCEDURE: The patient underwent informed consent. We discussed the details of the procedure including the risks, which included but not limited to bleeding, infection, vascular damage, cardiac perforation, stroke and CT. She understood these risks and is willing to proceed. The patient was brought to the EP laboratory in a fasting and unsedated state and prepped and draped in a sterile fashion. I obtained access of the right femoral vein x 3, placing an 8, 9 and 7-Ukrainian short sheath using the modified Seldinger technique. Prior to the ablation, her pacemaker was programmed to the DDD 70 mode. Next, via the femoral sheaths, I placed a decapolar catheter easily in the coronary sinus and an ICE catheter into the right atrium. Using the ICE catheter, intracardiac ultrasound images were obtained of the right and left atrium. There was evidence of two left and two right pulmonary veins. She had a standard interatrial septum and no unusual anatomic variance. Using intracardiac ultrasound, a detailed 3D geometry was created and this was merged with the cardiac CT scan. Next, the patient was systemically heparinized and a transseptal was performed using an SL1 sheath and a Eldon needle. Of note, [address] [address] PROCEDURE REPORT Name: AICHA SOLER Room #: 213-P [facility] Winsome#: [id number] Admission: 07/03/19 ������������������ Attend Phys: Demetrius Arzola MD Discharge: ������������������ Date of : 57 Report #: [id number] under THAI, there was evidence of a PFO, but I could not localize this using THAI ultrasound. On my first pass of the interatrial septum, I came on with the Eldon needle and the needle barely crossed into the left atrium. I tried advancing my dilator into the left atrium and this was unsuccessful. Therefore, a second attempt at transseptal was performed and again, I came on with the Eldon needle and again, the needle barely crossed into the left atrium. Advancing the dilator again, I was not able to advance into the left atrium. It appeared that she had a very fibrosed interatrial septum. Therefore, using my wire, I hunted for one of these holes that I created and I was able to advance my guidewire into the left superior pulmonary vein. I attempted to advance the sheath across the septum and this was unsuccessful. This appeared to be very fibrosed. Therefore, I removed the dilator and kept the wire in the left superior pulmonary vein and I placed a [employer] Powerflex Pro 6 mm x 4 cm balloon into the interatrial septum and I performed dilatation of the interatrial septum. After performing this, I could easily advance the SL1 sheath into the left atrium and therefore, I exchanged the SL1 sheath for the cryo sheath and I was able to place this into the left superior pulmonary vein. Pre-ablation, the patient was in sinus rhythm, sinus cycle length of 855 milliseconds with a paced atrial rhythm. AR interval was 145, QRS duration was 85 milliseconds, QT interval was 500 milliseconds. Next, I started by attempting to isolate the left superior pulmonary vein. This vein had an unusual takeoff as it curved anteriorly. Therefore, getting a good seal on this vessel was quite challenging. I performed several freezes in this vein. My first freeze was of 50 seconds duration. Second freeze was only of 60 seconds duration and came off because our attempts were greater than 30 degrees. I then performed a third freeze of 180 seconds duration with temperatures only reaching -31 degrees. I performed a fourth freeze, came off after 70 seconds due to poor temps and I performed a fifth freeze of 180 seconds duration and I only attained a temperature of -31 degrees. Therefore, I decided to move to the left inferior pulmonary vein and I performed a 4-minute freeze followed by a 300-second freeze. During the second freeze, the vein isolated within 160 seconds. I then checked the left superior pulmonary vein to see if this was isolated and unfortunately, it was not. Therefore, I performed a 3-minute freeze followed by another 3-minute freeze that did not result in isolation. I then performed another freeze and this time, it appeared I got my best occlusion based on venography. This time, I got a temperature of -48 degrees. This was by far our best freeze and the vein isolated within 57 seconds. Therefore, I continued the freeze for 5 minutes. I turned my attention to the right superior pulmonary vein and I performed a 100-second freeze followed by an 85-second freeze and came off early due to poor temps. I then was able to place the balloon more anteriorly and inferiorly and got a better seal with temps of -46 degrees. This vein isolated within 33 seconds. I performed a freeze of 3 minutes duration and came off early due to some weakening of the phrenic nerve. We monitored the phrenic for about 5 minutes and it returned to full strength, so this was not a major issue. I then turned my attention to the right inferior pulmonary vein and I performed a single freeze of 3 minutes duration and the vein isolated [facility] [address] [place] [address] PROCEDURE REPORT Name: AICHA SOLER Room #: 213-P [facility]#: [id number] Admission: 07/03/19 ������������������ Attend Phys: Demetrius Arzola MD Discharge: ������������������ Date of : 57 Report #: [id number] within about 40 seconds. Therefore, I checked all the veins and these appeared to be isolated. I therefore removed my cryoballoon from the cryo sheath and I created a 3D voltage map of the left atrium using a Lasso catheter and this clearly showed that we had created a wide circumferential ablation of the left and right-sided veins. As such, all catheters and sheaths were pulled to the right side. Ablation of atrial flutter. Given the patient's history of prior atrial flutter, flutter ablation was performed. Prior to ablation, the transisthmus conduction time was 60 seconds. I performed ablation with an 8 mm ablation catheter via ramp sheath at 70 greenberg and 60 degrees. I created a continuous drag lesion and once I reached the IVC, came off ablation. I then checked and there was evidence of bidirectional block with a transisthmus conduction time of 135 milliseconds. I went back on my line and looked for any potentials and there were nice double potentials throughout and there were some small signals along the posterior aspect and I did some additional ablation here and at this point, the procedure was concluded. Using intracardiac ultrasound, I verified that there was no pericardial effusion. The patient received systemic protamine and once the ACT was within acceptable range, all catheters and sheaths were pulled and hemostasis was obtained and a [id number] suture was placed at the groin site. Her pacemaker was interrogated, tested and found to be functioning normally. It was programmed back to its original settings at DDDR 70-130. CONCLUSIONS: 1. Successful AFib ablation with isolation of the 4 pulmonary veins. 2. Successful atrial flutter ablation with evidence of bidirectional block. 3. Successful pacemaker reprogramming. ��������������������������������������������� ���������������������������������������� By: ��������������������������������������������� [id number] /nt
[2019-07-03 09:57] VITALS: BP 156/81
[2019-07-03 10:06] LABS: ABSOLUTE NEUTROPHILS 4.1 thou/uL (1.4-8.2); BASOPHILS 1.2 % (0.0-2.0); EOSINOPHILS 1.6 % (0.0-3.0); HEMOGLOBIN 14.5 gm/dL (12.0-15.0); LYMPHOCYTES 36.1 % (24.0-44.0); MCH 29.1 pg (26.0-34.0); MCHC 34.5 g/dL (28.0-37.0); MCV 84.4 fL (80.0-100.0); MONOCYTES 10.7 % (1.0-8.0); PLATELET COUNT 242 thou/uL (150-400); POLYS 50.4 % (36.0-66.0); RBC 4.98 mil/uL (4.20-5.00); WBC 8.2 thou/uL (4.0-11.0)
[2019-07-03 10:19] LABS: APTT 25.8 Seconds (24.5-32.8); PROTIME 10.9 Seconds (9.3-11.4)
[2019-07-03 10:59] LABS: CALCIUM 8.8 mg/dL (8.5-10.1); CREATININE 0.6 mg/dL (0.6-1.0); POTASSIUM 3.6 mmol/L (3.5-5.1)
[2019-07-03 11:05] LABS: ALBUMIN 3.7 g/dL (3.4-5.0); TOTAL BILIRUBIN 0.4 mg/dL (<0.1-1.0)
[2019-07-03 16:10] VITALS: BP 129/73
--- NOTE | 2019-07-03 16:14 | NUR ---
REC PT FROM [employer] LAW CLERK, A&0X4, GROIN SITE ARTURO AND A STITCH, NO DRAINAGE NOR HEMATOMA, NOR BRUIT. ACHS, NO IVF AT THIS TIME. PT LETHARGIC. TWO IV SITES, SPOUSE HERE WITH PT. EDUCATED PT ON RESTRICTIONS AND D/T LETHARGIC STATE LET HER KNOW I'D REPEAT THEM. SHOWED BOTH HOW TO USE CALL LIGHT, STARTED VS AND POST PROCEDURE FLOW SHEET. WILL HAVE FAMILY SIGN PAPERS. WILL CONTINUE TO MONITOR. PT TURNED DOWN HAVING ANYTHING TO DRINK AT THIS TIME.
[2019-07-04 00:33] VITALS: BP 134/74
--- NOTE | 2019-07-04 04:53 | NUR ---
RECEIVED PT'S CARE AT 1939; PT. ON BED; AXO4; NO C/O PAIN; REMAINED BED REST UNTIL 2114; [facility]STAND[facility]; EDUCATED ABOUT FALL PREVENTION; [facility] UND[facility]STANDING; ST. "DO NOT BRING ME INSULIN"; "I DO NOT DO THAT"; ASKED IF WANTS BS CHECKED; REFUSED; AROUND 2099 BY NURSE AID REPORT PT. UPSET; C/O BACK PAIN; PRN PAIN MEDICATION NOT DUE; AT 2110; BY NURSE REPORT, GIL, PT. C/O WITH PRIMARY CARE COORDINATOR ABOUT NOT BEING HELPED TO STAND UP; PER REPORT PT. UPSET; IRRITABLE; RAISING VOICE; AT 2135 STICK INSERTER IN ROOM; PT. C/O BACK PAIN; ST. "I CALLED 40 MIN AGO & NOT BODY HAS HELPED ME"; EDUCATED ABOUT STICK INSERTER WAS WITH A CRITICAL PT; NO ANSWER BACK; BLANCA D/C PER ORDER; PT. HELPED OUT OF BED; NO C/O PAIN; NO HEMATOMA; PULSES 2/2; EDUCATED ABOUT CALLIN IF PAIN OVER GROIN AREA; ST. UNDERSTANDING; PT. APOLOGY FOR BEING SO "GRUMPY"; STICK INSERTER ACCEPT APOLOGIES; EDUCATED ABOUT ASSESSMENT Q4H; ST. UNDERSTANDING; R. GROIN SIDE DRY; INTACT; NO HEMATOMA DURING ASSESSMENT; MONITORING; ASSESSMENT CHARGED; FOLLOWING POC; WILL PASS ON REPORT.
[2019-07-04 06:11] VITALS: BP 141/73
[2019-07-04 08:00] VITALS: BP 141/75
[2019-07-04] MEDS ORDERED: AMIODARONE HCL400 MG PO (09:55)
[2019-07-04 10:54] VITALS: BP 141/75
--- NOTE | 2019-07-04 11:27 | NUR ---
REC CARE OF PT AT SHIFT CHANGE, SHE'S A&0X4, AMB STEADY, NO DRAINAGE NOR HEMATOMA AT R GROIN SITE, PT HAS TWO IVS, BOTH REMOVED FOR D/C, TELE REMOVED. PT IN MUCH BETTER SPIRITS THIS A.M. REFUSING BG STICKS, GOOD APPETITE, SPOUSE AT BEDSIDE, MANAGER INTEGRATION MARIA GONSALES REMOVED STITCH, PT TOLERATED WELL. SHE D/C TO HOME VIA W/C, SPOUSE AND ACCOMPANIED BY STAFF.
== END 2019-07-04 11:19 | disposition home or self-care (01) ==
LOC: CATH 09:21 → 2N 16:21 → CATH 07-04 11:19
PROVIDERS: Internal Medicine Cardiovascular Disease
DX: I48.91 Unspecified atrial fibrillation (principal); I48.4 Atypical atrial flutter; I10 Essential (primary) hypertension; E11.9 Type 2 diabetes mellitus without complications; E03.9 Hypothyroidism, unspecified; F17.210 Nicotine dependence, cigarettes, uncomplicated; Z90.49 Acquired absence of other specified parts of digestive tract; Z98.890 Other specified postprocedural states; Z79.899 Other long term (current) drug therapy; Z79.01 Long term (current) use of anticoagulants; Z88.0 Allergy status to penicillin; Z88.6 Allergy status to analgesic agent
CPT/HCPCS: 10081; 62110; 62900; 65020; 65040; 70005

== ENCOUNTER 2019-07-11 13:42 | Emergency (ER) | payer BC, OTHER ==
[~2019-07-11] VITALS: Ht 157.5 cm; Wt 78.5 kg
[2019-07-11 14:16] LABS: ABSOLUTE NEUTROPHILS 5.6 thou/uL (1.4-8.2); EOSINOPHILS 1.4 % (0.0-3.0); HEMATOCRIT 39.8 % (37.0-47.0); HEMOGLOBIN 13.6 gm/dL (12.0-15.0); LYMPHOCYTES 29.8 % (24.0-44.0); MCH 29.6 pg (26.0-34.0); MCHC 34.2 g/dL (28.0-37.0); MCV 86.6 fL (80.0-100.0); MONOCYTES 10.4 % (1.0-8.0); PLATELET COUNT 195 thou/uL (150-400); POLYS 57.4 % (36.0-66.0); RBC 4.59 mil/uL (4.20-5.00); RDW 15.8 % (10.5-14.5); WBC 9.9 thou/uL (4.0-11.0)
[2019-07-11 14:18] LABS: URINE BILIRUBIN NEGATIVE (Negative); URINE BLOOD TRACE (Negative); URINE CLARITY CLEAR; URINE COLOR YELLOW; URINE GLUCOSE-RANDOM* NEGATIVE (Negative); URINE KETONES NEGATIVE (Negative); URINE LEUKOCYTES NEGATIVE (Negative); URINE NITRITE NEGATIVE (Negative); URINE PROTEIN (DIPSTICK) TRACE (Negative); URINE SPECIFIC GRAVITY >= 1.030 (1.005-1.035); URINE UROBILINOGEN 0.2 E.U./dl (0.2-1.0)
[2019-07-11 14:29] LABS: ANION GAP 10 mmol/L (7-16); APTT 27.8 Seconds (24.5-32.8); BUN 17 mg/dL (7-18); CALCIUM 9.4 mg/dL (8.5-10.1); CHLORIDE 107 mmol/L (98-107); CO2 26 mmol/L (21-32); CREATININE 0.8 mg/dL (0.6-1.0); GLUCOSE 124 mg/dL (74-106); INR 1.1; POTASSIUM 3.8 mmol/L (3.5-5.1); PROTIME 11.3 Seconds (9.3-11.4); SODIUM 143 mmol/L (136-145)
[2019-07-11 14:30] LABS: AMP/METHAMP Negative (Negative); BARBITURATES Negative (Negative); BENZODIAZEPINES Negative (Negative); COCAINE Negative (Negative); METHADONE Negative (Negative); OPIATES Negative (Negative); PCP Negative (Negative)
[2019-07-11 14:35] LABS: ALBUMIN 3.7 g/dL (3.4-5.0); SALICYLATE 3.9 mg/dL (2.8-20.0); SGOT 12 U/L (15-37); SGPT 26 U/L (30-65); TOTAL BILIRUBIN 0.3 mg/dL (<0.1-1.0); TOTAL PROTEIN 7.1 g/dL (6.4-8.2)
[2019-07-11 15:15] VITALS: BP 120/62
[2019-07-11] MEDS ORDERED: NORCO 5-325 TA1 EAC1 PO (15:29)
== END 2019-07-11 15:45 | disposition home or self-care (01) ==
LOC: ER 13:42
PROVIDERS: Emergency Medicine
DX: S00.83XA Contusion of other part of head, initial encounter (principal); S70.01XA Contusion of right hip, initial encounter; R79.1 Abnormal coagulation profile; I48.91 Unspecified atrial fibrillation; I10 Essential (primary) hypertension; E11.9 Type 2 diabetes mellitus without complications; E03.9 Hypothyroidism, unspecified; F17.210 Nicotine dependence, cigarettes, uncomplicated; Z90.49 Acquired absence of other specified parts of digestive tract; Z88.0 Allergy status to penicillin; Z88.6 Allergy status to analgesic agent; W10.8XXA Fall (on) (from) other stairs and steps, initial encounter; Y93.89 Activity, other specified; Y92.89 Other specified places as the place of occurrence of the external cause; Y99.8 Other external cause status

== ENCOUNTER → 2020-03-22 | Outpatient (CLI) | payer BC, OTHER ==
[~2020-03-22] MED LIST changes: +NORCO 5-325 TA1 EAC1 PO
== END ==
LOC: SJCVCIMAG 09:01
PROVIDERS: ATTEND Internal Medicine Cardiovascular Disease
DX: I07.1 Rheumatic tricuspid insufficiency (principal); I48.0 Paroxysmal atrial fibrillation; I11.0 Hypertensive heart disease with heart failure; I50.30 Unspecified diastolic (congestive) heart failure; E11.9 Type 2 diabetes mellitus without complications; I49.5 Sick sinus syndrome; E78.5 Hyperlipidemia, unspecified; E03.9 Hypothyroidism, unspecified; F17.210 Nicotine dependence, cigarettes, uncomplicated; Z79.82 Long term (current) use of aspirin; Z79.899 Other long term (current) drug therapy; Z79.84 Long term (current) use of oral hypoglycemic drugs; Z82.49 Family history of ischemic heart disease and other diseases of the circulatory system; Z95.0 Presence of cardiac pacemaker

== ENCOUNTER → 2020-07-05 | Outpatient (CLI) | payer OTHER | LOC: CAT 15:44 | PROVIDERS: ATTEND Internal Medicine Cardiovascular Disease | DX: Z13.6 Encounter for screening for cardiovascular disorders (principal); I25.10 Atherosclerotic heart disease of native coronary artery without angina pectoris; E78.00 Pure hypercholesterolemia, unspecified ==

== ENCOUNTER → 2020-08-01 | Outpatient (CLI) | payer BC, OTHER | LOC: SJCVCIMAG 07:30 | PROVIDERS: ATTEND Internal Medicine Cardiovascular Disease | DX: I07.1 Rheumatic tricuspid insufficiency (principal); I49.3 Ventricular premature depolarization; I49.5 Sick sinus syndrome; I48.91 Unspecified atrial fibrillation; E78.5 Hyperlipidemia, unspecified; E11.9 Type 2 diabetes mellitus without complications; F17.200 Nicotine dependence, unspecified, uncomplicated; Z95.0 Presence of cardiac pacemaker ==

== ENCOUNTER → 2021-09-19 | Outpatient (CLI) | payer BC, OTHER | LOC: SJCVCIMAG 11:23 | PROVIDERS: ATTEND Internal Medicine Cardiovascular Disease | DX: I08.2 Rheumatic disorders of both aortic and tricuspid valves (principal); I48.91 Unspecified atrial fibrillation; Z95.0 Presence of cardiac pacemaker ==